=== PATIENT | female | born 1945 | race African-American/Black ===

== ENCOUNTER 2023-07-10 11:39 | Day surgery (SDC) | payer MEDICARE, OTHER, SELFPAY ==
[2023-07-08 08:16] VITALS: BMI 33.8
--- NOTE | 2023-07-09 13:10 | P.CONAN_ITS ---
HPI - Anesthesia Eval Consult details Narrative: 77yo F for Left Lateral rectus Eye Muscle Recession,Medial rectus Resection PCP cleared. CAD with CORI in 2010 [facility] Past Medical History Medical History Encounter for dual-energy x-ray absoptiometry review Helicobacter pylori (H. pylori) Pain of right hand Intramural leiomyoma of uterus Glaucoma Sciatic leg pain CAD (coronary artery disease) Tubular adenoma of colon Complete rotator cuff rupture of left shoulder Optic neuropathy, ischemic, arteritic Neurogenic claudication due to lumbar spinal stenosis Sleep apnea Diabetes Obesity (BMI 30.0-34.9) Hyperlipidemia HTN (hypertension) Surgical History Surgical History History of coronary artery stent placement History of biopsy of temporal artery History of esophagogastroduodenoscopy (EGD) H/O colonoscopy Social History Social History Are you a primary laboratory animal care veterinarian to a significant other at home: No Do you presently have visiting nurse or other home services: No Patient Tobacco Use Status: Never used Tobacco Use of substances other than those prescribed or required for medical reasons: No Have you been hit, kicked, punched, or otherwise hurt by someone within the past year? If so, by whom?: No Are you DNR?: No Advance Directives: No Advance Directives Information Provided: Yes Advance Directives on File: No Recently lost weight without trying: No Eating poorly because of decreased appetite: No Nutrition Risks: No Nutritional Risk Patient : No : No Poor oral hygiene: Yes (missing teeth on top and bottom) Meds Allergies Allergy/AdvReac Type Severity Reaction Status Date / Time amoxicillin Allergy Rash Verified 07/08/23 07:54 lisinopril Allergy Cough Verified 07/08/23 07:54 Home Medications Medication Instructions Recorded Confirmed Last Taken Type acetaminophen 500 mg tablet 500 mg PO Q6H PRN pain 07/08/23 07/08/23 Unknown History aspirin 81 mg tablet,delayed 81 mg PO DAILY 07/08/23 07/08/23 07/10/23 History release atorvastatin 40 mg tablet 40 mg PO BEDTIME 07/08/23 07/08/23 Unknown History bimatoprost 0.01 % eye drops drp ophthalmic (eye) 07/08/23 Unknown History (Lumigan) brimonidine 0.2 %-timolol 0.5 % 1 drp ophthalmic (eye) BID 07/08/23 07/08/23 Unknown History eye drops (Combigan) brinzolamide 1 % eye 1 drp ophthalmic (eye) BID 07/08/23 07/08/23 Unknown History drops,suspension clotrimazole 1 % topical cream 1 appl topical DAILY 07/08/23 07/08/23 Unknown History diclofenac sodium 1 % topical gel 4 g topical BID 07/08/23 07/08/23 Unknown History fluocinonide 0.05 % topical 1 appl topical BID 07/08/23 07/08/23 Unknown History ointment hydrochlorothiazide 12.5 mg capsule 12.5 mg PO QAM 07/08/23 07/08/23 Unknown History hydrocortisone 1 % topical cream 1 appl topical DAILY 07/08/23 07/08/23 Unknown History with perineal applicator ibuprofen 600 mg tablet 600 mg PO BID PRN pain 07/08/23 07/08/23 Unknown History metformin 500 mg tablet,extended 1,000 mg PO QAM 07/08/23 07/08/23 Unknown History release 24 hr metoprolol succinate 25 mg 25 mg PO DAILY 07/08/23 07/08/23 07/10/23 History tablet,extended release 24 hr minoxidil 2.5 mg tablet 2.5 mg PO DAILY alopecia 07/08/23 07/08/23 Unknown History multivitamin 1 tab PO DAILY 07/08/23 07/08/23 Unknown History mupirocin 2 % topical ointment 1 appl topical BID 07/08/23 07/08/23 Unknown History Exam Exam Date and Time: July 09, 2023 1310 Height,Weight and Vital Signs: Height 5 ft 5 in Weight 92.079 kg Narrative Narrative: Per PCP note: EKG 03/2023 NSR Nuc stress 03/2023 without abnormality Assessment and Plan Assessment Anesthesia Assessment: Chart Reviewed
[2023-07-10] VITALS (9 sets, daily range): BP systolic 120–151; BP diastolic 50–94; PULSE 68–82; RESP 14–18; TEMP 36.6–36.9; O2SAT 96–100
[2023-07-10 12:38] LABS: Glucose, Whole Blood 124 mg/dL (60-115)
--- NOTE | 2023-07-10 13:40 | HO.ANESPROP2 ---
[facility] Past Medical History Medical History Encounter for dual-energy x-ray absoptiometry review Helicobacter pylori (H. pylori) Pain of right hand Intramural leiomyoma of uterus Glaucoma Sciatic leg pain CAD (coronary artery disease) Tubular adenoma of colon Complete rotator cuff rupture of left shoulder Optic neuropathy, ischemic, arteritic Neurogenic claudication due to lumbar spinal stenosis Sleep apnea Diabetes Obesity (BMI 30.0-34.9) Hyperlipidemia HTN (hypertension) Surgical History Surgical History History of coronary artery stent placement History of biopsy of temporal artery History of esophagogastroduodenoscopy (EGD) H/O colonoscopy History of Problems with Anesthesia: No Social History Social History Are you a primary personal care attendant to a significant other at home: No Do you presently have visiting nurse or other home services: No Patient Tobacco Use Status: Never used Tobacco Use of substances other than those prescribed or required for medical reasons: No Have you been hit, kicked, punched, or otherwise hurt by someone within the past year? If so, by whom?: No Are you DNR?: No Advance Directives: No Advance Directives Information Provided: Yes Advance Directives on File: No Recently lost weight without trying: No Eating poorly because of decreased appetite: No Nutrition Risks: No Nutritional Risk Patient : No : No Poor oral hygiene: Yes (missing teeth on top and bottom) Meds Allergies Allergy/AdvReac Type Severity Reaction Status Date / Time amoxicillin Allergy Rash Verified 07/08/23 07:54 lisinopril Allergy Cough Verified 07/08/23 07:54 Active Medications: Current Medications Lactated Ringer's (Lr) 1,000 mls @ 100 mls/hr IVCONT .Q10H [facility] Home Medications Medication Instructions Recorded Confirmed Last Taken Type acetaminophen 500 mg tablet 500 mg PO Q6H PRN pain 07/08/23 07/08/23 Unknown History aspirin 81 mg tablet,delayed 81 mg PO DAILY 07/08/23 07/08/23 07/10/23 History release atorvastatin 40 mg tablet 40 mg PO BEDTIME 07/08/23 07/08/23 Unknown History bimatoprost 0.01 % eye drops drp ophthalmic (eye) 07/08/23 Unknown History (Lumigan) brimonidine 0.2 %-timolol 0.5 % 1 drp ophthalmic (eye) BID 07/08/23 07/08/23 Unknown History eye drops (Combigan) brinzolamide 1 % eye 1 drp ophthalmic (eye) BID 07/08/23 07/08/23 Unknown History drops,suspension clotrimazole 1 % topical cream 1 appl topical DAILY 07/08/23 07/08/23 Unknown History diclofenac sodium 1 % topical gel 4 g topical BID 07/08/23 07/08/23 Unknown History fluocinonide 0.05 % topical 1 appl topical BID 07/08/23 07/08/23 Unknown History ointment hydrochlorothiazide 12.5 mg capsule 12.5 mg PO QAM 07/08/23 07/08/23 Unknown History hydrocortisone 1 % topical cream 1 appl topical DAILY 07/08/23 07/08/23 Unknown History with perineal applicator ibuprofen 600 mg tablet 600 mg PO BID PRN pain 07/08/23 07/08/23 Unknown History metformin 500 mg tablet,extended 1,000 mg PO QAM 07/08/23 07/08/23 Unknown History release 24 hr metoprolol succinate 25 mg 25 mg PO DAILY 07/08/23 07/08/23 07/10/23 History tablet,extended release 24 hr minoxidil 2.5 mg tablet 2.5 mg PO DAILY alopecia 07/08/23 07/08/23 Unknown History multivitamin 1 tab PO DAILY 07/08/23 07/08/23 Unknown History mupirocin 2 % topical ointment 1 appl topical BID 07/08/23 07/08/23 Unknown History Exam Exam Date and Time: July 10, 2023 1340 Height,Weight and Vital Signs: Height 5 ft 5 in Weight 92.079 kg Last Vital Signs Temp 97.9 F 07/10/23 12:50 Pulse 76 07/10/23 12:50 Resp 18 07/10/23 12:50 BP 151/73 H 07/10/23 12:50 Pulse Ox 96 07/10/23 12:50 O2 Del Method Room Air 07/10/23 12:50 Pertinent Lab Results Pertinent Lab Results: Laboratory Tests 07/10/23 12:34 POC Glucose 124 H Airway Mallampati Class: III (prominent central incisors) TM Dist: >3cm Neck ROM: Full Loose/Missing/Broken Teeth: No Heart: RRR Lungs: CTA Assessment and Plan Assessment Anesthesia Assessment: Anesthesia Plan Discussed and Chart Reviewed Final Anesthetic Review History of Problems with Anesthesia: No NPO: Yes ASA Class: III Final Preanesthetic Review: Meds/Allgs Chart Reviewed, Consent Obtained/Reviewed and Anes Risks/Benef Reviewed Patient Risk: Intermediate Procedure Risk: Low Anesthetic Plan Anesthetic Plan: GA Disposition: Standard PACU
[2023-07-10] MEDS: fentaNYL citrate/PF 100 MCG/2 ML VIAL 25 MCG IVPUSH (15:10)
[2023-07-10] MEDS: oxyCODONE HCl Immed Release 5 MG TABLET PO (15:12)
--- NOTE | 2023-07-10 15:35 | HO.OPHTHAL ---
Ophthalmology Operative Note Date of Service: 07/10/23 Narrative: Diagnosis exotropia. Procedure 1. Recession of left lateral rectus 9 mm 2. Resection of left medial rectus [address] Antonio anesthesia general complications none. The patient was brought to the operating room placed under general anesthesia. The left eye was prepped and draped in the usual sterile ophthalmic fashion. A lid speculum was placed in the eye and a peritomy was created around the lateral rectus muscle. The the lateral rectus was hooked and secured with a double-armed Vicryl suture. The muscle was then disinserted from the globe and reattached to a position 9 mm behind the original insertion. Conjunctiva was closed with interrupted Vicryl sutures. A peritomy was created around the medial rectus muscle which was hooked and secured with a [place] muscle clamp. The overlying fascial attachments were dissected free and a 7 mm resection was marked off with cautery. The resection point was secured with a double-armed Vicryl suture and the distal muscle resected. The resection point was then drawn forward to the original insertion and conjunctiva was closed with interrupted Vicryl sutures. The patient was then awoken from general anesthesia and discharged to postoperative recovery in good condition.
== END 2023-07-10 15:53 | disposition home or self-care (01) ==
PROVIDERS: PCP Internal Medicine; Visit Provider Ophthalmology
PROC: (CPT 67312; principal; 2023-07-10 14:30)
DX: H50.112 Monocular exotropia, left eye (principal); H40.9 Unspecified glaucoma; I10 Essential (primary) hypertension; E78.2 Mixed hyperlipidemia; E66.9 Obesity, unspecified; Z68.33 Body mass index [BMI] 33.0-33.9, adult; E11.9 Type 2 diabetes mellitus without complications; I25.10 Atherosclerotic heart disease of native coronary artery without angina pectoris; Z95.5 Presence of coronary angioplasty implant and graft; G47.33 Obstructive sleep apnea (adult) (pediatric); Z79.84 Long term (current) use of oral hypoglycemic drugs; Z79.899 Other long term (current) drug therapy; Z88.1 Allergy status to other antibiotic agents; Z88.8 Allergy status to other drugs, medicaments and biological substances; Z86.16 Personal history of COVID-19
CPT/HCPCS: 67312; 82947; J0131; J1100; J1885; J2405; J3010